=== PATIENT | female | born 1980 | race Caucasian/White ===

== ENCOUNTER 2016-07-15 12:07 | Outpatient (CLI) | payer OTHER ==
[~2016-07-15] VITALS: Ht 154.9 cm; Wt 62.1 kg
[~2016-07-15 12:07] MED LIST: CLONAZEPAM0.5 MG PO; FLONASE16 G1 BOTH NARES; FLUOXETINE HCL40 MG PO; IMITREX25 MG PO; MEDROL DOSEPAK4 MG PO; MIRALAX255 GM PO; NAPROSYN500 MG PO; PERCOCET 5/31 TABLET PO; TYLENOL EXTRA500 MG PO; ZOFRAN4 MG PO; ZYRTEC10 M2 PO
[2016-07-15] MEDS ORDERED: PROZAC40 MG PO (12:33)
[2016-07-15] MEDS ORDERED: ADDERALL12.5 MG PO (12:33)
[2016-07-15] MEDS ORDERED: KLONOPIN0.5 M1 PO (12:34)
[2016-07-15 12:36] VITALS: BP 125/83
[2016-07-15 13:05] LABS: ADD MIUA? YES; BILIRUBIN NEGATIVE; BLOOD NEGATIVE; COLOR YELLOW ((YELLOW)); GLUCOSE (STRIP) NEGATIVE; KETONES TRACE; LEUKOCYTES SMALL; NITRITE NEGATIVE; PROTEIN (STRIP) NEGATIVE; SPECIFIC GRAVITY 1.017 (1.000-1.030); UROBILINOGEN 0.2 MG/DL (0.2-1.0)
[2016-07-15 13:09] LABS: BACTERIA 1+; CASTS NONE SEEN /LPF; CRYSTALS NONE SEEN; EPITHELIAL CELLS 1+; MUCUS NONE SEEN; PATHOLOGICAL CAST NONE SEEN; RED BLOOD CELLS 0-5 /HPF (0-5); SMALL ROUND CELL PRESENT; YEAST-LIKE CELL NONE SEEN
[2016-07-15 13:20] LABS: BARBITUATES QUANT VALUE 0 NG/ML; BENZODIAZEPINES QUANT VALUE 0 NG/ML; BENZODIAZEPINES, URINE SCREEN Negative (200 ng/mL); MARIJUANA QUANT VALUE 0 NG/ML; OPIATES QUANTITATIVE VALUE 0 NG/ML; PHENCYCLIDINE QUANT VALUE 0 NG/ML
[2016-07-15 14:57] VITALS: BP 108/68
[2016-07-15 17:13] VITALS: BP 114/70
[2016-07-15] MEDS ORDERED: MACROBID100 MG PO (18:03)
[2016-07-15] MEDS ORDERED: REGLAN10 MG PO (18:03)
[2016-07-15] MEDS ORDERED: ONDANSETRON HCL8 MG PO (18:03)
[2016-07-15 18:13] LABS: CANDIDA DNA PROBE NEGATIVE; GARDNERELLA DNA PROBE NEGATIVE; INTERNAL CONTROL VALID? YES
== END 2016-07-15 18:25 | disposition home or self-care (01) ==
LOC: LDRP-OP 12:07 → 2WEST 12:08 → LDRP-OP 09-06 15:55
PROVIDERS: Advanced Practice Midwife
DX: O47.03 False labor before 37 completed weeks of gestation, third trimester (principal); O99.89 Other specified diseases and conditions complicating pregnancy, childbirth and the puerperium; Z3A.31 31 weeks gestation of pregnancy
CPT/HCPCS: 59025; 81003; 82731; 87086; 87480; 87510; 87651 90; 87660; G0378; J2405; J2765; J7120

== ENCOUNTER 2016-08-01 21:37 | Outpatient (CLI) | payer OTHER ==
[~2016-08-01] VITALS: Ht 154.9 cm; Wt 64.0 kg
[~2016-08-01 21:37] MED LIST changes: +ADDERALL12.5 MG PO; +KLONOPIN0.5 M1 PO; +MACROBID100 MG PO; +ONDANSETRON HCL8 MG PO; +PROZAC40 MG PO; +REGLAN10 MG PO
[2016-08-01 22:05] VITALS: BP 117/71
[2016-08-01] MEDS ORDERED: TYLENOL REGULA325 MG PO (22:07)
== END 2016-08-01 23:35 | disposition home or self-care (01) ==
LOC: LDRP-OP 21:37 → 2WEST 21:38 → LDRP-OP 09-02 20:14
DX: O47.03 False labor before 37 completed weeks of gestation, third trimester (principal); O99.89 Other specified diseases and conditions complicating pregnancy, childbirth and the puerperium; Z3A.34 34 weeks gestation of pregnancy
CPT/HCPCS: 59025; G0378; J7120

== ENCOUNTER 2016-08-31 00:35 | Outpatient (CLI) | payer OTHER ==
[~2016-08-31] VITALS: Ht 154.9 cm; Wt 70.5 kg
[~2016-08-31 00:35] MED LIST changes: +TYLENOL REGULA325 MG PO
[2016-08-31 00:54] VITALS: BP 123/81
[2016-08-31 01:24] LABS: EOSINOPHIL (%) 0.4 % (0-5); EOSINOPHIL COUNT 0.1 K/uL (0-0.3); HEMATOCRIT 30.4 % (36.0-46.0); IMMATURE GRANULOCYTE (%) 0.5 % (0.0-0.7); IMMATURE GRANULOCYTE COUNT 0.7 K/uL; LYMPHOCYTE COUNT 1.9 K/uL (1.0-2.8); MCHC 30.9 G/DL (30.0-36.0); MCV 90.5 FL (83-99); MEAN PLAT.VOLUME 10.5 uM^3 (9.5-12.4); MONOCYTE COUNT 1.3 K/uL (0-0.8); NEUTROPHIL (%) 76.3 % (45-76); NEUTROPHIL COUNT 10.8 K/uL (1.8-6.4); PLATELET COUNT 273 K/uL (156-360); RBC DIS.WIDTH-CV 15.1 % (11.8-14.6); RBC DIS.WIDTH-SD 48.7 % (39-53); RED BLOOD COUNT 3.36 M/uL (3.80-5.20); WHITE BLOOD COUNT 14.2 K/uL (4.1-10.2)
[2016-08-31 01:34] LABS: CHLORIDE 107 mEq/L (99-109); POTASSIUM 4.2 mEq/L (3.7-5.4); SODIUM 135 mEq/L (136-147)
[2016-08-31 01:37] LABS: GLUCOSE 91 mg/dL (70-99)
[2016-08-31 01:38] LABS: ANION GAP 10 MEQ/L (2-14)
[2016-08-31 01:39] LABS: TOTAL BILIRUBIN 0.1 mg/dL (0.0-1.0)
[2016-08-31 01:40] LABS: ALKALINE PHOSPHATASE 157 IU/L (3-129); GFR ESTIMATE (CALCULATED) > 59 mL/min/
[2016-08-31 01:41] LABS: UREA NITROGEN (BUN) 14 mg/dL (9-23)
[2016-08-31 01:45] LABS: BILIRUBIN NEGATIVE; BLOOD NEGATIVE; COLOR YELLOW ((YELLOW)); GLUCOSE (STRIP) NEGATIVE; KETONES NEGATIVE; LEUKOCYTES NEGATIVE; NITRITE NEGATIVE; PROTEIN (STRIP) 30; UROBILINOGEN 0.2 MG/DL (0.2-1.0)
[2016-08-31 01:49] LABS: ADD MIUA? NO; UCUL ADDED? NO
[2016-08-31 02:02] VITALS: BP 119/75
[2016-08-31 02:50] VITALS: BP 113/70
[2016-08-31 03:24] VITALS: BP 114/69
== END 2016-08-31 04:30 | disposition home or self-care (01) ==
LOC: LDRP-OP 00:35 → 2WEST 00:36 → LDRP-OP 10-15 00:50
PROVIDERS: Obstetrics & Gynecology Obstetrics
DX: O99.89 Other specified diseases and conditions complicating pregnancy, childbirth and the puerperium (principal); R10.9 Unspecified abdominal pain; R11.0 Nausea; Z3A.38 38 weeks gestation of pregnancy
CPT/HCPCS: 59025; 80053; 81003; 85025; 87502; G0378; J2270; J2405; J7120

== ENCOUNTER 2016-09-13 08:41 | Inpatient (IN) | payer OTHER ==
[2016-09-13] VITALS (38 sets, daily range): BP systolic 100–146; BP diastolic 56–96
[~2016-09-13] VITALS: Ht 154.9 cm; Wt 72.0 kg
[2016-09-13 09:45] LABS: EOSINOPHIL (%) 0.5 % (0-5); EOSINOPHIL COUNT 0.1 K/uL (0-0.3); HEMATOCRIT 30.8 % (36.0-46.0); IMMATURE GRANULOCYTE (%) 1.1 % (0.0-0.7); IMMATURE GRANULOCYTE COUNT 0.1 K/uL; INSTRUMENT ABS NEUTROPHIL CT 8.2 K/uL; LYMPHOCYTE COUNT 1.5 K/uL (1.0-2.8); MCH 27.9 PG (29.0-34.0); MCHC 30.5 G/DL (30.0-36.0); MCV 91.4 FL (83-99); MEAN PLAT.VOLUME 10.9 uM^3 (9.5-12.4); MONOCYTE (%) 8.1 % (3-12); MONOCYTE COUNT 0.9 K/uL (0-0.8); NEUTROPHIL (%) 76.4 % (45-76); NEUTROPHIL COUNT 8.2 K/uL (1.8-6.4); NRBC (%) 0.2 /100 WBC (0-0); PLATELET COUNT 232 K/uL (156-360); RBC DIS.WIDTH-CV 15.5 % (11.8-14.6); RBC DIS.WIDTH-SD 51.3 % (39-53); RED BLOOD COUNT 3.37 M/uL (3.80-5.20); WHITE BLOOD COUNT 10.7 K/uL (4.1-10.2)
[2016-09-14] VITALS (17 sets, daily range): BP systolic 115–153; BP diastolic 58–85
[2016-09-14 05:22] LABS: EOSINOPHIL (%) 0 % (0-5); HEMATOCRIT 22.1 % (36.0-46.0); IMMATURE GRANULOCYTE (%) 0.6 % (0.0-0.7); IMMATURE GRANULOCYTE COUNT 0.1 K/uL; INSTRUMENT ABS NEUTROPHIL CT 18.7 K/uL; LYMPHOCYTE COUNT 0.7 K/uL (1.0-2.8); MCH 28.8 PG (29.0-34.0); MCHC 31.7 G/DL (30.0-36.0); MCV 90.9 FL (83-99); MEAN PLAT.VOLUME 11.1 uM^3 (9.5-12.4); MONOCYTE (%) 6.6 % (3-12); MONOCYTE COUNT 1.4 K/uL (0-0.8); NEUTROPHIL (%) 89.2 % (45-76); NEUTROPHIL COUNT 18.7 K/uL (1.8-6.4); PLATELET COUNT 167 K/uL (156-360); RBC DIS.WIDTH-CV 15.7 % (11.8-14.6); RED BLOOD COUNT 2.43 M/uL (3.80-5.20); WHITE BLOOD COUNT 20.9 K/uL (4.1-10.2)
[2016-09-14 16:16] LABS: HEMATOCRIT 21.6 % (36.0-46.0); MCV 91.5 FL (83-99)
[2016-09-15 08:04] VITALS: BP 130/62
[2016-09-15] MEDS ORDERED: IBUPROFEN800 MG PO (11:54)
[2016-09-15] MEDS ORDERED: SPRINTEC1 EACH PO (11:54)
[2016-09-15] MEDS ORDERED: DOCUSATE SODIU100 MG PO (11:54)
[2016-09-15] MEDS ORDERED: FERROCITE324 MG PO (11:55)
[2016-09-15 15:05] VITALS: BP 133/68
== END 2016-09-15 17:27 | disposition home or self-care (01) | DRG 775 ==
LOC: LDRP-OP 08:41 → 2WEST 08:42 → LDRP-OP 09-14 15:14 → 2WEST 09-15 17:27 → LDRP-OP 10-15 04:47
PROVIDERS: Advanced Practice Midwife
DX: O70.1 Second degree perineal laceration during delivery (principal); O99.02 Anemia complicating childbirth; D62 Acute posthemorrhagic anemia; O99.824 Streptococcus B carrier state complicating childbirth; O99.344 Other mental disorders complicating childbirth; F41.9 Anxiety disorder, unspecified; F32.9 Major depressive disorder, single episode, unspecified; Z3A.40 40 weeks gestation of pregnancy; Z37.0 Single live birth
CPT/HCPCS: 85014; 85018; 85025; 86850; 86900; 86901; 86920; C1755; J0595; J2405; J2795; J3010; J7120; P9016

== ENCOUNTER 2016-10-16 15:00 | Emergency (ER) | payer OTHER ==
[~2016-10-16] VITALS: Ht 154.9 cm; Wt 64.0 kg
[~2016-10-16 15:00] MED LIST changes: +DOCUSATE SODIU100 MG PO; +FERROCITE324 MG PO; +IBUPROFEN800 MG PO; +SPRINTEC1 EACH PO
[2016-10-16] MEDS ORDERED: KLONOPIN0.5 M1 PO (16:26)
[2016-10-16] MEDS ORDERED: ADDERALL20 MG PO (16:26)
[2016-10-16 16:40] VITALS: BP 126/83
== END 2016-10-16 16:41 | disposition home or self-care (01) ==
LOC: EME 15:00
DX: Z76.0 Encounter for issue of repeat prescription (principal); F41.9 Anxiety disorder, unspecified
CPT/HCPCS: 99281; 99283

== ENCOUNTER 2017-04-21 17:57 | Emergency (ER) | payer OTHER ==
[~2017-04-21] VITALS: Ht 154.9 cm; Wt 58.2 kg
[~2017-04-21 17:57] MED LIST changes: +ADDERALL20 MG PO
[2017-04-21 18:34] LABS: ADD MIUA? YES; BILIRUBIN NEGATIVE; BLOOD NEGATIVE; COLOR YELLOW ((YELLOW)); GLUCOSE (STRIP) NEGATIVE; KETONES NEGATIVE; LEUKOCYTES SMALL; NITRITE NEGATIVE; PROTEIN (STRIP) 30; SPECIFIC GRAVITY 1.033 (1.000-1.030); UROBILINOGEN 0.2 MG/DL (0.2-1.0)
[2017-04-21 18:36] LABS: HEMATOCRIT 37.6 % (36.0-46.0); MCH 31.1 PG (29.0-34.0); MCV 94.2 FL (83-99); MEAN PLAT.VOLUME 9.3 uM^3 (9.5-12.4); PLATELET COUNT 333 K/uL (156-360); RBC DIS.WIDTH-CV 13.3 % (11.8-14.6); RBC DIS.WIDTH-SD 46.4 % (39-53); RED BLOOD COUNT 3.99 M/uL (3.80-5.20)
[2017-04-21 18:45] LABS: BACTERIA NONE SEEN /HPF; EPITHELIAL CELLS RARE /HPF; MUCUS 1+ /LPF; RED BLOOD CELLS 0-5 /HPF (0-5); UCUL ADDED? NO; WHITE BLOOD CELLS 0-5 /HPF (0-5)
[2017-04-21 18:46] LABS: CHLORIDE 102 mEq/L (99-109); POTASSIUM 4.1 mEq/L (3.7-5.4); SODIUM 135 mEq/L (136-147)
[2017-04-21 18:48] LABS: GLUCOSE 99 mg/dL (70-99)
[2017-04-21 18:50] LABS: ANION GAP 11 MEQ/L (2-14); TOTAL BILIRUBIN 0.1 mg/dL (0.0-1.0)
[2017-04-21 18:52] LABS: ALKALINE PHOSPHATASE 51 IU/L (3-129); GFR ESTIMATE (CALCULATED) > 59 mL/min/
[2017-04-21 18:53] LABS: UREA NITROGEN (BUN) 15 mg/dL (9-23)
[2017-04-21 19:22] LABS: QUANTITATIVE HCG 102143.9 MIU/ML
[2017-04-21] MEDS ORDERED: ZOFRAN ODT4 MG PO (20:18)
[2017-04-21 21:04] VITALS: BP 118/78
== END 2017-04-21 21:04 | disposition home or self-care (01) ==
LOC: EME 17:57
DX: O26.891 Other specified pregnancy related conditions, first trimester (principal); R11.2 Nausea with vomiting, unspecified; Z3A.01 Less than 8 weeks gestation of pregnancy; Z88.0 Allergy status to penicillin
CPT/HCPCS: 80053; 81003; 84702; 85027; 99281; 99284

== ENCOUNTER 2017-06-16 17:23 | Emergency (ER) | payer OTHER ==
[~2017-06-16] VITALS: Ht 154.9 cm; Wt 62.3 kg
[~2017-06-16 17:23] MED LIST changes: +ZOFRAN ODT4 MG PO
[2017-06-16 18:40] VITALS: BP 137/83
== END 2017-06-16 18:40 | disposition home or self-care (01) ==
LOC: EME 17:23
DX: K02.9 Dental caries, unspecified (principal); Z33.1 Pregnant state, incidental; Z88.0 Allergy status to penicillin; R51 Headache
CPT/HCPCS: 99281; 99283

== ENCOUNTER 2017-08-16 10:27 | Outpatient (CLI) | payer OTHER ==
[~2017-08-16] VITALS: Ht 154.9 cm; Wt 62.5 kg
[2017-08-16 11:18] VITALS: BP 115/63
[2017-08-16 12:05] VITALS: BP 112/68
[2017-08-16 12:41] LABS: APPEARANCE SL.HAZY ((CLEAR)); BILIRUBIN NEGATIVE; BLOOD NEGATIVE; COLOR YELLOW ((YELLOW)); GLUCOSE (STRIP) NEGATIVE; KETONES NEGATIVE; LEUKOCYTES NEGATIVE; NITRITE NEGATIVE; PROTEIN (STRIP) 30; UROBILINOGEN 0.2 MG/DL (0.2-1.0)
[2017-08-16 12:52] LABS: SPECIFIC GRAVITY 1.055 (1.000-1.030)
[2017-08-16 13:01] LABS: BACTERIA RARE /HPF; EPITHELIAL CELLS 1+ /HPF; MUCUS 3+ /LPF; RED BLOOD CELLS 0-5 /HPF (0-5); UCUL ADDED? NO; WHITE BLOOD CELLS 0-5 /HPF (0-5)
[2017-08-16 13:03] LABS: BENZODIAZEPINES, URINE SCREEN Negative (200 ng/mL)
[2017-08-16 13:21] LABS: BASOPHIL (%) 0.3 % (0-1); EOSINOPHIL (%) 0.3 % (0-5); HEMATOCRIT 30.5 % (36.0-46.0); HEMOGLOBIN 9.7 G/DL (11.9-15.5); IMMATURE GRANULOCYTE (%) 0.7 % (0.0-0.7); LYMPHOCYTE (%) 12.7 % (15-42); LYMPHOCYTE COUNT 1.5 K/uL (1.0-2.8); MCH 30.6 PG (29.0-34.0); MCHC 31.8 G/DL (30.0-36.0); MCV 96.2 FL (83-99); MONOCYTE COUNT 0.6 K/uL (0-0.8); NEUTROPHIL COUNT 9.5 K/uL (1.8-6.4); PLATELET COUNT 352 K/uL (156-360); RBC DIS.WIDTH-CV 13.6 % (11.8-14.6); RED BLOOD COUNT 3.17 M/uL (3.80-5.20); WHITE BLOOD COUNT 11.7 K/uL (4.1-10.2)
[2017-08-16 13:46] LABS: ALBUMIN 3.3 G/DL (3.2-4.8); CHLORIDE 103 MEQ/L (99-109); SODIUM 135 MEQ/L (136-147); TOTAL BILIRUBIN 0.2 MG/DL (0.0-1.0)
[2017-08-16 13:52] LABS: ALKALINE PHOSPHATASE 49 IU/L (3-129); ALT (GPT) 7 IU/L (3-49); AST (GOT) 9 IU/L (2-34); CREATININE 0.4 MG/DL (0.6-1.3); GFR ESTIMATE (CALCULATED) > 59 mL/min/; GLUCOSE 78 mg/dL (70-99); TOTAL PROTEIN 5.8 G/DL (6.4-8.3); UREA NITROGEN (BUN) 12 mg/dL (9-23)
[2017-08-16 16:58] LABS: CANDIDA DNA PROBE NEGATIVE; GARDNERELLA DNA PROBE NEGATIVE; TRICHOMONAS DNA PROBE NEGATIVE
== END 2017-08-16 17:40 | disposition home or self-care (01) ==
LOC: EME 10:27 → EDSTATUS 10:51 → LDRP-OP 10:54 → 2WEST 10:55
PROVIDERS: Advanced Practice Midwife
DX: O26.892 Other specified pregnancy related conditions, second trimester (principal); Z3A.23 23 weeks gestation of pregnancy; R11.2 Nausea with vomiting, unspecified
CPT/HCPCS: 59025; 80053; 80306 90; 81003; 82731; 85025; 87086; 87480; 87510; 87660; G0378; J2405; J7120

== ENCOUNTER 2017-09-20 16:38 | Outpatient (CLI) | payer OTHER ==
[~2017-09-20] VITALS: Ht 154.9 cm; Wt 68.0 kg
[2017-09-20 16:48] VITALS: BP 113/60
[2017-09-20 18:04] LABS: SOURCE URINE
[2017-09-20 18:11] LABS: APPEARANCE CLEAR ((CLEAR)); BILIRUBIN NEGATIVE; BLOOD NEGATIVE; COLOR YELLOW ((YELLOW)); GLUCOSE (STRIP) NEGATIVE; KETONES NEGATIVE; LEUKOCYTES NEGATIVE; NITRITE NEGATIVE; PROTEIN (STRIP) 30; SPECIFIC GRAVITY 1.031 (1.000-1.030); UCUL ADDED? NO
[2017-09-20 18:33] LABS: AMPHETAMINE NEGATIVE (500 ng/mL); BARBITURATES NEGATIVE (200 ng/mL); BENZODIAZEPINES PRESUMPTIVE POSITIVE (150 ng/mL); BUPRENORPHINE NEGATIVE (10 ng/mL); COCAINE NEGATIVE (150 ng/mL); METHADONE NEGATIVE (200 ng/mL); METHAMPHETAMINE PRESUMPTIVE POSITIVE (500 ng/mL); OPIATES (MORPHINE) PRESUMPTIVE POSITIVE (100 ng/mL); OXYCODONE NEGATIVE (100 ng/mL); PHENCYCLIDINE NEGATIVE (25 ng/mL); PROPOXYPHENE NEGATIVE (300 ng/mL); THC CANNABINOIDS NEGATIVE (50 ng/mL); TRICYCLIC ANTIDEPRESSANTS NEGATIVE (300 ng/mL)
[2017-09-20 19:14] LABS: BENZODIAZEPINES, URINE SCREEN Negative (200 ng/mL)
[2017-09-20 21:44] LABS: CANDIDA DNA PROBE NEGATIVE; GARDNERELLA DNA PROBE NEGATIVE; TRICHOMONAS DNA PROBE NEGATIVE
[2017-09-23 12:36] LABS: CHLAMYDIA TRACHOMATIS NEGATIVE; NEISSERIA GONORRHOEAE NEGATIVE
== END 2017-09-20 18:30 | disposition home or self-care (01) ==
LOC: LDRP-OP 16:38 → 2WEST 16:39 → LDRP-OP 01-09 18:45
PROVIDERS: Advanced Practice Midwife
DX: O36.8330 Maternal care for abnormalities of the fetal heart rate or rhythm, third trimester, not applicable or unspecified (principal); O09.523 Supervision of elderly multigravida, third trimester; Z3A.28 28 weeks gestation of pregnancy; O99.343 Other mental disorders complicating pregnancy, third trimester; F41.9 Anxiety disorder, unspecified; F32.9 Major depressive disorder, single episode, unspecified; Z88.0 Allergy status to penicillin; Z88.2 Allergy status to sulfonamides
CPT/HCPCS: 59025; 81003; 84999; 87086; 87480; 87491; 87510; 87591; 87660; G0378

== ENCOUNTER 2017-10-15 17:55 | Emergency (ER) | payer OTHER ==
[~2017-10-15] VITALS: Ht 154.9 cm; Wt 69.0 kg
[2017-10-15 19:01] LABS: HEMATOCRIT 28.3 % (36.0-46.0); MCH 29.9 PG (29.0-34.0); MCHC 31.8 G/DL (30.0-36.0); RBC DIS.WIDTH-CV 17.7 % (11.8-14.6); RBC DIS.WIDTH-SD 57.5 % (39-53); RED BLOOD COUNT 3.01 M/uL (3.80-5.20)
[2017-10-15 19:12] LABS: ALBUMIN 3.5 g/dL (3.2-4.8); CHLORIDE 103 mEq/L (99-109); POTASSIUM 3.8 mEq/L (3.7-5.4); SODIUM 135 mEq/L (136-147)
[2017-10-15 19:13] LABS: PLATELET COUNT 195 K/uL (156-360)
[2017-10-15 19:15] LABS: GLUCOSE 105 mg/dL (70-99); TOTAL PROTEIN 6.2 g/dL (6.4-8.3)
[2017-10-15 19:16] LABS: TOTAL BILIRUBIN 0.2 mg/dL (0.0-1.0)
[2017-10-15 19:18] LABS: ALKALINE PHOSPHATASE 101 IU/L (3-129); CREATININE 0.6 mg/dL (0.6-1.3); GFR ESTIMATE (CALCULATED) > 59 mL/min/
[2017-10-15 19:19] LABS: UREA NITROGEN (BUN) 8 mg/dL (9-23)
[2017-10-15 19:20] LABS: AST (GOT) 36 IU/L (2-34); DIRECT BILIRUBIN 0.1 mg/dL (0.0-0.3)
[2017-10-15 19:21] LABS: ALT (GPT) 22 IU/L (3-49)
[2017-10-15 19:36] LABS: APPEARANCE SL.HAZY ((CLEAR)); BILIRUBIN NEGATIVE; BLOOD MODERATE; COLOR YELLOW ((YELLOW)); GLUCOSE (STRIP) NEGATIVE; KETONES 20; LEUKOCYTES MODERATE; NITRITE NEGATIVE; PROTEIN (STRIP) 30; SPECIFIC GRAVITY 1.034 (1.000-1.030); UROBILINOGEN 0.2 MG/DL (0.2-1.0)
[2017-10-15 19:44] LABS: BACTERIA RARE /HPF; EPITHELIAL CELLS 1+ /HPF; HYALINE CASTS 0-5 /LPF; MUCUS TRACE /LPF; RED BLOOD CELLS TNTC /HPF (0-5); UCUL ADDED? YES
[2017-10-15] MEDS ORDERED: KEFLEX500 MG PO (23:10)
[2017-10-15] MEDS ORDERED: TAMIFLU75 MG PO (23:10)
[2017-10-15] MEDS ORDERED: VENTOLIN HFA18 GM IH (23:11)
[2017-10-15 23:27] VITALS: BP 110/80
== END 2017-10-15 23:27 | disposition home or self-care (01) ==
LOC: EME 17:55
PROVIDERS: Physician Assistant
DX: O99.513 Diseases of the respiratory system complicating pregnancy, third trimester (principal); J10.1 Influenza due to other identified influenza virus with other respiratory manifestations; Z3A.33 33 weeks gestation of pregnancy; O99.343 Other mental disorders complicating pregnancy, third trimester; F41.9 Anxiety disorder, unspecified; F32.9 Major depressive disorder, single episode, unspecified; Z88.0 Allergy status to penicillin; Z88.8 Allergy status to other drugs, medicaments and biological substances
CPT/HCPCS: 71046; 80048; 80076; 81003; 85027; 87086; 87502; 87651 90; 94640; 99281; 99285; J7030

== ENCOUNTER 2017-10-23 18:18 | Outpatient (CLI) | payer OTHER ==
[~2017-10-23] VITALS: Ht 154.9 cm; Wt 67.6 kg
[2017-10-23] VITALS (7 sets, daily range): BP systolic 111–121; BP diastolic 61–71
[~2017-10-23 18:18] MED LIST changes: +KEFLEX500 MG PO; +TAMIFLU75 MG PO; +VENTOLIN HFA18 GM IH
[2017-10-23] MEDS ORDERED: FIORICET 50-301 EAC1 PO (19:39)
[2017-10-23] MEDS ORDERED: PROZAC40 MG PO (19:40)
[2017-10-23] MEDS ORDERED: WELLBUTRIN XL300 MG PO (19:40)
[2017-10-23 21:26] LABS: AMPHETAMINE NEGATIVE (500 ng/mL); BENZODIAZEPINES PRESUMPTIVE POSITIVE (150 ng/mL); COCAINE NEGATIVE (150 ng/mL); METHAMPHETAMINE NEGATIVE (500 ng/mL); OPIATES (MORPHINE) PRESUMPTIVE POSITIVE (100 ng/mL); PHENCYCLIDINE NEGATIVE (25 ng/mL); THC CANNABINOIDS NEGATIVE (50 ng/mL)
[2017-10-23 21:27] LABS: BARBITURATES PRESUMPTIVE POSITIVE (200 ng/mL); BUPRENORPHINE NEGATIVE (10 ng/mL); METHADONE NEGATIVE (200 ng/mL); OXYCODONE NEGATIVE (100 ng/mL); PROPOXYPHENE NEGATIVE (300 ng/mL); TRICYCLIC ANTIDEPRESSANTS NEGATIVE (300 ng/mL)
[2017-10-23 22:01] LABS: BENZODIAZEPINES, URINE SCREEN Negative (200 ng/mL)
[2017-10-24 02:13] LABS: AMYLASE 47 IU/L (1-118)
[2017-10-24 02:15] LABS: TOTAL PROTEIN 5.2 g/dL (6.4-8.3)
[2017-10-24 02:17] LABS: TOTAL BILIRUBIN 0.2 mg/dL (0.0-1.0)
[2017-10-24 02:18] LABS: ALKALINE PHOSPHATASE 101 IU/L (3-129)
[2017-10-24 02:20] LABS: AST (GOT) 20 IU/L (2-34)
[2017-10-24 02:21] LABS: ALT (GPT) 16 IU/L (3-49); DIRECT BILIRUBIN 0.1 mg/dL (0.0-0.3)
[2017-10-24 02:22] LABS: LIPASE 14 U/L (1.0-51.0)
[2017-10-24 02:59] VITALS: BP 102/59
[2017-10-24 08:17] VITALS: BP 109/58
== END 2017-10-24 10:08 | disposition home or self-care (01) ==
LOC: LDRP-OP → 2WEST 18:20 → LDRP-OP 01-09 21:13
PROVIDERS: Advanced Practice Midwife
DX: O26.893 Other specified pregnancy related conditions, third trimester (principal); R10.10 Upper abdominal pain, unspecified; O09.513 Supervision of elderly primigravida, third trimester; Z87.440 Personal history of urinary (tract) infections; O99.343 Other mental disorders complicating pregnancy, third trimester; F32.9 Major depressive disorder, single episode, unspecified; O99.013 Anemia complicating pregnancy, third trimester; D64.9 Anemia, unspecified; O99.353 Diseases of the nervous system complicating pregnancy, third trimester; G43.909 Migraine, unspecified, not intractable, without status migrainosus; Z3A.33 33 weeks gestation of pregnancy; Z88.1 Allergy status to other antibiotic agents
CPT/HCPCS: 59025; 76705; 76818; 80076; 82150; 83690; 84999; G0378; J2405; J2765; J7120

== ENCOUNTER 2017-11-15 12:32 | Outpatient (CLI) | payer OTHER ==
[~2017-11-15] VITALS: Ht 154.9 cm; Wt 72.5 kg
[~2017-11-15 12:32] MED LIST changes: +FIORICET 50-301 EAC1 PO; +WELLBUTRIN XL300 MG PO
[2017-11-15] MEDS ORDERED: TYLENOL REGULA325 MG PO (13:05)
[2017-11-15 14:06] VITALS: BP 122/73
== END 2017-11-15 15:32 | disposition home or self-care (01) ==
LOC: LDRP-OP 12:32 → 2WEST 12:33 → LDRP-OP 01-09 10:14
DX: O47.1 False labor at or after 37 completed weeks of gestation (principal); O99.353 Diseases of the nervous system complicating pregnancy, third trimester; G43.909 Migraine, unspecified, not intractable, without status migrainosus; O99.343 Other mental disorders complicating pregnancy, third trimester; F32.9 Major depressive disorder, single episode, unspecified; O99.513 Diseases of the respiratory system complicating pregnancy, third trimester; J30.9 Allergic rhinitis, unspecified; Z3A.37 37 weeks gestation of pregnancy
CPT/HCPCS: 59025; G0378

== ENCOUNTER 2017-11-20 12:17 | Emergency (ER) | payer OTHER ==
[~2017-11-20] VITALS: Ht 154.9 cm; Wt 77.2 kg
[2017-11-20 15:52] LABS: APPEARANCE CLOUDY ((CLEAR)); BILIRUBIN NEGATIVE; BLOOD LARGE; COLOR YELLOW ((YELLOW)); GLUCOSE (STRIP) NEGATIVE; KETONES 5; LEUKOCYTES MODERATE; NITRITE NEGATIVE; PROTEIN (STRIP) NEGATIVE; SPECIFIC GRAVITY 1.017 (1.000-1.030); UROBILINOGEN 0.2 MG/DL (0.2-1.0)
[2017-11-20 16:04] LABS: BACTERIA 1+ /HPF; EPITHELIAL CELLS 1+ /HPF; MUCUS NONE SEEN /LPF; RED BLOOD CELLS RARE /HPF (0-5); UCUL ADDED? YES
[2017-11-20] MEDS ORDERED: PERCOCET 5/31 TABLET PO (16:08)
[2017-11-20 16:24] LABS: AMPHETAMINE NEGATIVE (500 ng/mL); BARBITURATES PRESUMPTIVE POSITIVE (200 ng/mL); BENZODIAZEPINES NEGATIVE (150 ng/mL); BUPRENORPHINE NEGATIVE (10 ng/mL); COCAINE NEGATIVE (150 ng/mL); METHADONE NEGATIVE (200 ng/mL); METHAMPHETAMINE NEGATIVE (500 ng/mL); OPIATES (MORPHINE) NEGATIVE (100 ng/mL); OXYCODONE NEGATIVE (100 ng/mL); PHENCYCLIDINE NEGATIVE (25 ng/mL); PROPOXYPHENE NEGATIVE (300 ng/mL); THC CANNABINOIDS NEGATIVE (50 ng/mL); TRICYCLIC ANTIDEPRESSANTS NEGATIVE (300 ng/mL)
[2017-11-20] MEDS ORDERED: MACROBID100 MG PO (16:43)
[2017-11-20 18:00] VITALS: BP 109/81
== END 2017-11-20 18:08 | disposition home or self-care (01) ==
LOC: EME 12:17
PROVIDERS: Emergency Medicine
DX: O99.89 Other specified diseases and conditions complicating pregnancy, childbirth and the puerperium (principal); M54.30 Sciatica, unspecified side; O23.43 Unspecified infection of urinary tract in pregnancy, third trimester; Z3A.38 38 weeks gestation of pregnancy; O99.343 Other mental disorders complicating pregnancy, third trimester; F41.9 Anxiety disorder, unspecified; F32.9 Major depressive disorder, single episode, unspecified; Z88.0 Allergy status to penicillin
CPT/HCPCS: 81003; 84999; 87086; 99281; 99285; J3010

== ENCOUNTER 2017-11-29 07:53 | Inpatient (IN) | payer OTHER ==
[2017-11-29] VITALS (23 sets, daily range): BP systolic 106–132; BP diastolic 62–81
[~2017-11-29] VITALS: Ht 154.9 cm; Wt 72.7 kg
[2017-11-29] MEDS ORDERED: PRENATAL TABLE1 EAC3 PO (08:17)
[2017-11-29 09:49] LABS: AMPHETAMINE NEGATIVE (500 ng/mL); BARBITURATES NEGATIVE (200 ng/mL); BENZODIAZEPINES PRESUMPTIVE POSITIVE (150 ng/mL); BUPRENORPHINE NEGATIVE (10 ng/mL); COCAINE NEGATIVE (150 ng/mL); METHADONE NEGATIVE (200 ng/mL); METHAMPHETAMINE NEGATIVE (500 ng/mL); OPIATES (MORPHINE) NEGATIVE (100 ng/mL); OXYCODONE NEGATIVE (100 ng/mL); PHENCYCLIDINE NEGATIVE (25 ng/mL); PROPOXYPHENE NEGATIVE (300 ng/mL); THC CANNABINOIDS NEGATIVE (50 ng/mL); TRICYCLIC ANTIDEPRESSANTS NEGATIVE (300 ng/mL)
[2017-11-29 10:07] LABS: BASOPHIL (%) 0.2 % (0-1); EOSINOPHIL (%) 0.4 % (0-5); HEMATOCRIT 33.8 % (36.0-46.0); IMMATURE GRANULOCYTE (%) 0.6 % (0.0-0.7); LYMPHOCYTE (%) 14.5 % (15-42); LYMPHOCYTE COUNT 1.2 K/uL (1.0-2.8); MCH 31.9 PG (29.0-34.0); MCHC 32.5 G/DL (30.0-36.0); MONOCYTE (%) 11.4 % (3-12); MONOCYTE COUNT 0.9 K/uL (0-0.8); NEUTROPHIL (%) 72.9 % (45-76); NEUTROPHIL COUNT 5.9 K/uL (1.8-6.4); PLATELET COUNT 251 K/uL (156-360); RBC DIS.WIDTH-CV 18.4 % (11.8-14.6); RBC DIS.WIDTH-SD 65.2 % (39-53); RED BLOOD COUNT 3.45 M/uL (3.80-5.20); WHITE BLOOD COUNT 8.1 K/uL (4.1-10.2)
[2017-11-29 11:18] LABS: BENZODIAZEPINES, URINE SCREEN Negative (200 ng/mL)
[2017-11-30 07:03] LABS: BASOPHIL (%) 0.2 % (0-1); EOSINOPHIL (%) 0.9 % (0-5); EOSINOPHIL COUNT 0.1 K/uL (0-0.3); HEMATOCRIT 27.4 % (36.0-46.0); IMMATURE GRANULOCYTE (%) 0.5 % (0.0-0.7); LYMPHOCYTE (%) 12.1 % (15-42); MCH 30.9 PG (29.0-34.0); MCHC 31.4 G/DL (30.0-36.0); MCV 98.6 FL (83-99); MONOCYTE (%) 9.2 % (3-12); MONOCYTE COUNT 0.8 K/uL (0-0.8); NEUTROPHIL (%) 77.1 % (45-76); NEUTROPHIL COUNT 6.6 K/uL (1.8-6.4); PLATELET COUNT 176 K/uL (156-360); RBC DIS.WIDTH-CV 18.1 % (11.8-14.6); RBC DIS.WIDTH-SD 64.7 % (39-53); RED BLOOD COUNT 2.78 M/uL (3.80-5.20); WHITE BLOOD COUNT 8.6 K/uL (4.1-10.2)
[2017-11-30 07:06] LABS: HEMOGLOBIN 8.6 G/DL (11.9-15.5)
[2017-12-01 07:16] VITALS: BP 117/70
[2017-12-01] MEDS ORDERED: IBUPROFEN800 MG PO (12:33)
[2017-12-01] MEDS ORDERED: Tylenol Extra Streng PO (12:33)
== END 2017-12-01 13:07 | disposition home or self-care (01) | DRG 774 ==
LOC: LDRP-OP 07:53 → 2WEST 07:54 → LDRP-OP 14:03 → 2WEST 18:56 → LDRP-OP 01-09 15:43
PROVIDERS: Advanced Practice Midwife
DX: O99.02 Anemia complicating childbirth (principal); D62 Acute posthemorrhagic anemia; O99.214 Obesity complicating childbirth; E66.9 Obesity, unspecified; Z68.30 Body mass index [BMI] 30.0-30.9, adult; O99.344 Other mental disorders complicating childbirth; F32.9 Major depressive disorder, single episode, unspecified; F41.9 Anxiety disorder, unspecified; O75.89 Other specified complications of labor and delivery; M54.32 Sciatica, left side; O75.3 Other infection during labor; N39.0 Urinary tract infection, site not specified; O76 Abnormality in fetal heart rate and rhythm complicating labor and delivery; Z3A.39 39 weeks gestation of pregnancy; Z37.0 Single live birth
CPT/HCPCS: 84999; 85025; C1755; J2210; J3010; J7120; S0020

== ENCOUNTER 2018-02-11 13:31 | Emergency (ER) | payer OTHER ==
[~2018-02-11] VITALS: Ht 154.9 cm; Wt 58.0 kg
[~2018-02-11 13:31] MED LIST changes: +PRENATAL TABLE1 EAC3 PO; +Tylenol Extra Streng PO
[2018-02-11] MEDS ORDERED: ATARAX,VISTARIL50 MG PO (14:33)
[2018-02-11 14:44] VITALS: BP 141/97
== END 2018-02-11 14:45 | disposition home or self-care (01) ==
LOC: EME 13:31
DX: F43.9 Reaction to severe stress, unspecified (principal); F41.1 Generalized anxiety disorder; F32.9 Major depressive disorder, single episode, unspecified; Z88.0 Allergy status to penicillin
CPT/HCPCS: 90839; 99281; 99282